=== PATIENT | female | born 1975 | race Caucasian/White ===

== ENCOUNTER 2022-12-08 06:20 | Emergency (ER) | payer SELFPAY ==
[~2022-12-08] VITALS: Ht 170.2 cm; Wt 68.2 kg
[2022-12-08] MEDS ORDERED: IPRATROPIUM BROM 0.5 MG/2.5ML INH SOL NEB ONE (06:30)
[2022-12-08] MEDS ORDERED: ALBUTEROL SULF 2.5 MG/0.5ML(0.5%) NEB SOLN NEB ONE (06:30)
[2022-12-08 07:05] LABS: Basophils # (auto) 0 10 ^3/uL (0-0.2); Basophils % (auto) 0.4 % (0.0-2.0); Eosinophils # (auto) 0.1 10 ^3/uL (0-0.8); Hematocrit 40.4 % (36.0-46.0); Hemoglobin 14.2 g/dL (12.2-16.2); Lymphocytes # (auto) 1.5 10 ^3/uL (0.4-5.4); Mean Corpuscular Hgb Conc. 35.1 g/dL (32.0-36.0); Mean Corpuscular Volume 91.2 fL (80.0-100.0); Monocytes # (auto) 0.4 10 ^3/uL (0-1.3); Monocytes % (auto) 6.5 % (0.0-12.0); Neutrophils # (auto) 4.6 10 ^3/uL (1.6-8.6); Neutrophils % (auto) 69.1 % (37.0-80.0); Nucleated Red Blood Cells % 0.1 %; Red Blood Cells 4.44 10^6/uL (4.0-5.20); Red Cell Distribution Width 12.6 % (11.8-14.3); White Blood Cell 6.7 10^3/uL (4.4-10.8)
[2022-12-08 07:28] LABS: Potassium 3.6 mmol/L (3.5-5.1)
[2022-12-08 07:50] LABS: Albumin 3.9 g/dL (3.4-5.0); BUN/Creatinine Ratio 11.4 (10.0-20.0); Bilirubin, Total 0.3 mg/dL (0.2-1.0); Calcium 8.9 mg/dL (8.5-10.1); Total Protein 6.8 g/dL (6.4-8.2)
[2022-12-08 08:18] VITALS: BP 136/75
[2022-12-08] MEDS ORDERED: ALBU108A5 IN (09:41)
[2022-12-08] MEDS ORDERED: PRED20TA2 PO (09:41)
[2022-12-08] MEDS ORDERED: AZITTAB PO (09:41)
[2022-12-08] MEDS ORDERED: DexAMETHasone SOD PHOS 10MG/1ML VIAL INJ IM ONE (09:45)
== END 2022-12-08 10:17 | disposition home or self-care (01) ==
LOC: ER 06:20
DX: J45.901 Unspecified asthma with (acute) exacerbation (principal)
CPT/HCPCS: 36415; 71045; 80053; 84484; 85025; 93005; 94640; 96372; 99285; J1100; J7644

== ENCOUNTER 2022-12-11 01:16 | Inpatient (IN) | payer SELFPAY ==
[~2022-12-11] VITALS: Ht 170.2 cm; Wt 89.3 kg
[~2022-12-11 01:16] MED LIST: ALBU108A5 IN; AZITTAB PO; PRED20TA2 PO
[2022-12-11 02:43] LABS: Basophils # (auto) 0 10 ^3/uL (0-0.2); Basophils % (auto) 0.2 % (0.0-2.0); Eosinophils # (auto) 0 10 ^3/uL (0-0.8); Eosinophils % (auto) 0.4 % (0.0-7.0); Hematocrit 34.5 % (36.0-46.0); Hemoglobin 11.7 g/dL (12.2-16.2); Lymphocytes # (auto) 2.2 10 ^3/uL (0.4-5.4); Lymphocytes % (auto) 23.7 % (10.0-50.0); Mean Corpuscular Hemoglobin 31.1 pg (28.0-32.0); Mean Corpuscular Hgb Conc. 33.9 g/dL (32.0-36.0); Mean Corpuscular Volume 91.9 fL (80.0-100.0); Monocytes % (auto) 10.7 % (0.0-12.0); Neutrophils # (auto) 6.1 10 ^3/uL (1.6-8.6); Red Blood Cells 3.75 10^6/uL (4.0-5.20); Red Cell Distribution Width 12.6 % (11.8-14.3); White Blood Cell 9.3 10^3/uL (4.4-10.8)
[2022-12-11 02:55] LABS: Albumin 3.3 g/dL (3.4-5.0); Calcium 8.9 mg/dL (8.5-10.1); Potassium 3.4 mmol/L (3.5-5.1)
[2022-12-11 02:58] LABS: BUN/Creatinine Ratio 17.3 (10.0-20.0)
[2022-12-11 03:01] LABS: Bilirubin, Total 0.3 mg/dL (0.2-1.0); Total Protein 5.9 g/dL (6.4-8.2)
[2022-12-11 04:50] LABS: Urine Bacteria FEW /hpf (None Seen); Urine Blood Negative /uL (Negative); Urine Mucus FEW (None Seen); Urine Specific Gravity 1.021 (1.001-1.035); Urine WBC 1 /hpf (0 - 5)
[2022-12-11] MEDS ORDERED: SODIUM CHLORIDE 0.9% 1,000 ML IV ONE ×2 (07:00)
[2022-12-11] MEDS ORDERED: ONDANSETRON HCL 4 MG/2 ML VIAL IV ONE (07:15)
[2022-12-11] MEDS ORDERED: MORPHINE SULFATE 4 MG/ML SYR/VIAL IV ONE (07:15)
[2022-12-11] MEDS ORDERED: DOCUSATE SOD 100 MG CAP PO PRN (10:30)
[2022-12-11 10:50] LABS: Hematocrit 37.6 % (36.0-46.0); Hemoglobin 12.8 g/dL (12.2-16.2)
[2022-12-11 11:02] LABS: INR 0.93 (0.9-1.15); Partial Thromboplastin Time 26.1 sec (24.6-33.4)
[2022-12-11] MEDS: SODIUM CHLOR 0.9% PF (SALINE LOCK) 10ML VIAL/SYR IV SCH ×2 (14:19→22:20)
[2022-12-11] MEDS ORDERED: POTASSIUM CHL 20 Meq TABLET PO ONE (15:15)
[2022-12-11] MEDS: ONDANSETRON HCL 4 MG/2 ML VIAL IV PRN (16:05)
[2022-12-11] MEDS: MORPHINE SULFATE INJ 2 MG/ml SYRG IV PRN ×2 (16:06→20:43)
[2022-12-11] MEDS: ACETAMINOPHEN 325 MG TAB PO PRN (17:21)
[2022-12-11] MEDS ORDERED: IOHEXOL 350 MG/ML 100ML IJ ONE (20:16)
[2022-12-11] MEDS: FLUoxetine HCL 20 MG CAP PO SCH (20:42)
[2022-12-11] MEDS ORDERED: MELATONIN 5 MG TAB PO ONE (22:00)
[2022-12-12] MEDS: MORPHINE SULFATE INJ 2 MG/ml SYRG IV PRN ×2 (02:43→08:21)
[2022-12-12] MEDS: ONDANSETRON HCL 4 MG/2 ML VIAL IV PRN ×4 (02:46→22:17)
[2022-12-12] MEDS: SODIUM CHLOR 0.9% PF (SALINE LOCK) 10ML VIAL/SYR IV SCH ×3 (06:02→22:23)
[2022-12-12 06:32] LABS: Hematocrit 33.9 % (36.0-46.0); Hemoglobin 11.8 g/dL (12.2-16.2); Mean Corpuscular Hemoglobin 31.7 pg (28.0-32.0); Mean Corpuscular Hgb Conc. 34.7 g/dL (32.0-36.0); Mean Corpuscular Volume 91.3 fL (80.0-100.0); Red Blood Cells 3.72 10^6/uL (4.0-5.20); Red Cell Distribution Width 12.7 % (11.8-14.3); White Blood Cell 7.2 10^3/uL (4.4-10.8)
[2022-12-12 06:40] LABS: Band Neutrophils % (manual) 0; Basophils % (manual) 0 (0.0-2.0); Blast Cells 0; Eosinophils % (manual) 0 (0-7); Metamyelocytes % 0; Myelocytes % 0; Promyelocytes % 0; Reactive Lymphocytes 0
[2022-12-12 06:59] LABS: Potassium 3.8 mmol/L (3.5-5.1)
[2022-12-12 07:09] LABS: Albumin 3.3 g/dL (3.4-5.0); BUN/Creatinine Ratio 12.3 (10.0-20.0); Bilirubin, Total 0.3 mg/dL (0.2-1.0)
[2022-12-12 07:45] LABS: Lymphocytes % (manual) 27 (10.0-50.0); Monocytes % (manual) 6 (0-12)
[2022-12-12] MEDS ORDERED: FLUoxetine HCL 20 MG CAP PO SCH (10:00)
[2022-12-12] MEDS: MORPHINE SULFATE 4 MG/ML SYR/VIAL IV PRN ×2 (13:07→22:15)
[2022-12-12 15:04] VITALS: BP 133/70
[2022-12-12] MEDS: ACETAMINOPHEN 325 MG TAB PO PRN (16:41)
[2022-12-12 17:13] VITALS: BP 146/76
[2022-12-12] MEDS: FLUoxetine HCL 20 MG CAP PO SCH (18:23)
[2022-12-12 21:30] VITALS: BP 144/89
[2022-12-12 22:00] VITALS: BP 144/89
[2022-12-13] MEDS: HYDROcodone-ACET 5/325MG TAB PO PRN ×3 (02:57→15:05)
[2022-12-13 05:00] VITALS: BP 125/80
[2022-12-13] MEDS: ONDANSETRON HCL 4 MG/2 ML VIAL IV PRN ×2 (05:25→22:58)
[2022-12-13] MEDS: MORPHINE SULFATE 4 MG/ML SYR/VIAL IV PRN ×4 (05:26→22:59)
[2022-12-13] MEDS: SODIUM CHLOR 0.9% PF (SALINE LOCK) 10ML VIAL/SYR IV SCH ×3 (05:49→22:58)
[2022-12-13 09:00] VITALS: BP 137/74
[2022-12-13 13:00] VITALS: BP_SYST 117; BP_SYST 133; BP_DIAS 79; BP_DIAS 80
[2022-12-13] MEDS: FLUoxetine HCL 20 MG CAP PO SCH (18:38)
[2022-12-13 23:02] VITALS: BP 139/80
[2022-12-14] MEDS: HYDROcodone-ACET 5/325MG TAB PO PRN ×3 (04:20→18:27)
[2022-12-14 05:00] VITALS: BP 131/94
[2022-12-14] MEDS: SODIUM CHLOR 0.9% PF (SALINE LOCK) 10ML VIAL/SYR IV SCH ×3 (06:00→22:00)
[2022-12-14] MEDS ORDERED: GASTROGRAFIN 30 ML SOL ONE (07:42)
[2022-12-14 08:00] VITALS: BP 136/79
[2022-12-14] MEDS: ONDANSETRON HCL 4 MG/2 ML VIAL IV PRN ×3 (08:44→21:31)
[2022-12-14] MEDS: MORPHINE SULFATE 4 MG/ML SYR/VIAL IV PRN ×3 (08:45→21:33)
[2022-12-14 09:05] VITALS: BP 136/79
[2022-12-14 12:56] VITALS: BP 115/66
[2022-12-14 17:00] VITALS: BP 120/80
[2022-12-14] MEDS: FLUoxetine HCL 20 MG CAP PO SCH (18:25)
[2022-12-14 22:00] VITALS: BP 115/79
[2022-12-15] MEDS: HYDROcodone-ACET 5/325MG TAB PO PRN ×2 (01:34→10:14)
[2022-12-15] MEDS: ONDANSETRON HCL 4 MG/2 ML VIAL IV PRN ×2 (04:56→12:51)
[2022-12-15] MEDS: MORPHINE SULFATE 4 MG/ML SYR/VIAL IV PRN ×2 (04:59→12:53)
[2022-12-15 05:00] VITALS: BP 120/76
[2022-12-15] MEDS: SODIUM CHLOR 0.9% PF (SALINE LOCK) 10ML VIAL/SYR IV SCH ×2 (06:00→13:09)
[2022-12-15 08:00] VITALS: BP 126/71
[2022-12-15 09:00] VITALS: BP 126/71
[2022-12-15 12:58] VITALS: BP 129/83
[2022-12-15] MEDS ORDERED: HYDR-4902 PO (13:51)
[2022-12-15 14:59] VITALS: BP 126/71
== END 2022-12-15 15:42 | disposition home or self-care (01) | DRG 605 ==
LOC: ER 01:16 → TELE 10:23 → TELE-CENTR 12-12 15:05
PROVIDERS: ADMIT Nurse Practitioner Family; ATTEND Internal Medicine
DX: S30.1XXA Contusion of abdominal wall, initial encounter (principal); E11.9 Type 2 diabetes mellitus without complications; F41.9 Anxiety disorder, unspecified; I10 Essential (primary) hypertension; J45.909 Unspecified asthma, uncomplicated; X58.XXXA Exposure to other specified factors, initial encounter; Z88.0 Allergy status to penicillin; Z90.710 Acquired absence of both cervix and uterus; Y93.89 Activity, other specified; Y92.89 Other specified places as the place of occurrence of the external cause; Y99.8 Other external cause status
CPT/HCPCS: 36415; 71045; 74176; 74177; 76705; 80053; 81001; 83690; 85007; 85014; 85018; 85025; 85027; 85610; 85730; 96361; 96374; 96375; G0378; J2405